=== PATIENT | female | born 1945 | race Caucasian/White ===

== ENCOUNTER 2017-12-15 08:40 | Day surgery (SDC) ==
[2017-12-15] MEDS: BETADINE OPTH PREP OP PRN ×2 (10:25→10:50)
[2017-12-15] MEDS: TETRACAINE 0.5% UNIT-DOSE OP PRN ×2 (10:25→10:50)
[2017-12-15] MEDS: CYCLOGYL 2% OPTH OP PRN ×3 (10:26→10:36)
[2017-12-15] MEDS ORDERED: ZOFRAN 4 MG/2 ML IVP ONE (10:35)
[2017-12-15] MEDS ORDERED: BSS WITH EPINEPHRINE OP ONE (10:35)
[2017-12-15] MEDS ORDERED: BRIMONIDINE TARTRATE 0.2% OPTH SOL OP PRN (10:35)
[2017-12-15] MEDS ORDERED: DEX-MOXI-KETOR OPTH INJ 1/0.5/0.4 MG/ML IO ONE (10:35)
[2017-12-15] MEDS ORDERED: LIDOCAINE 1% 20 ML MDV ID STA (10:35)
[2017-12-15] MEDS ORDERED: LIDOCAINE 1%/PHENYLEPHRINE 1.5% BSS (SURGERY) INTRAOCULA ONE (10:35)
[2017-12-15] MEDS ORDERED: SUBLIMAZE ONE (11:04)
[2017-12-15] MEDS ORDERED: TORADOL ONE (11:04)
[2017-12-15] MEDS ORDERED: DECADRON 4 MG/ML SDV ONE (11:04)
[2017-12-15] MEDS ORDERED: VERSED ONE (11:04)
[2017-12-15] MEDS ORDERED: ZOFRAN 4 MG/2 ML ONE (11:04)
[2017-12-15 14:10] VITALS: TEMP 97.7
[2017-12-17 10:30] VITALS: BP 128/67
== END 2017-12-15 12:45 | disposition home or self-care (01) ==
LOC: SURG 08:40
PROVIDERS: ATTEND Ophthalmology
DX: H25.811 Combined forms of age-related cataract, right eye (principal)

== ENCOUNTER 2017-12-29 09:00 | Day surgery (SDC) ==
[2017-12-29] MEDS: TETRACAINE 0.5% UNIT-DOSE OP PRN ×3 (10:40→11:26)
[2017-12-29] MEDS: BETADINE OPTH PREP OP PRN ×3 (10:40→11:26)
[2017-12-29] MEDS: CYCLOGYL 2% OPTH OP PRN ×3 (10:41→10:51)
[2017-12-29] MEDS ORDERED: LIDOCAINE 1% 20 ML MDV ID STA (10:53)
[2017-12-29] MEDS ORDERED: ZOFRAN 4 MG/2 ML IVP ONE (10:53)
[2017-12-29] MEDS ORDERED: BRIMONIDINE TARTRATE 0.2% OPTH SOL OP PRN (10:53)
[2017-12-29 11:02] VITALS: TEMP 97.6
[2017-12-29] MEDS: BSS WITH EPINEPHRINE OP ONE ×2 (11:20→11:26)
[2017-12-29] MEDS: DEX-MOXI-KETOR OPTH INJ 1/0.5/0.4 MG/ML IO ONE ×2 (11:21→11:26)
[2017-12-29] MEDS: LIDOCAINE 1%/PHENYLEPHRINE 1.5% BSS (SURGERY) INTRAOCULA ONE ×2 (11:21→11:26)
[2017-12-29] MEDS ORDERED: SUBLIMAZE ONE (11:30)
[2017-12-29] MEDS ORDERED: VERSED ONE (11:30)
[2017-12-29] MEDS ORDERED: ZOFRAN 4 MG/2 ML ONE (11:30)
[2017-12-29 14:55] VITALS: BP 137/66
== END 2017-12-29 12:15 | disposition home or self-care (01) ==
LOC: SURG 09:00
PROVIDERS: ATTEND Ophthalmology
DX: H25.812 Combined forms of age-related cataract, left eye (principal)